=== PATIENT | female | born 1975 | race Two or more races ===

== ENCOUNTER 2022-05-13 08:23 | Day surgery (SDC) | payer OTHER ==
[~2022-05-13] VITALS: Ht 167.6 cm; Wt 96.6 kg
[~2022-05-13 08:23] MED LIST: NS 1,000 ML IV ONE
[2022-05-13] MEDS ORDERED: ATOR1TAB21 PO (09:16)
[2022-05-13] MEDS ORDERED: CELE1CAP4 PO (09:16)
[2022-05-13] MEDS ORDERED: FENO145T7 PO (09:16)
[2022-05-13] MEDS ORDERED: propofoL 500 MG/50 ML VIAL As Ordered ONE (09:57)
[2022-05-13] MEDS ORDERED: LIDOCAINE 2% 100MG/5ML SDV (FOR ANES.) As Ordered ONE (09:57)
[2022-05-13 10:36] VITALS: BP 153/75
== END 2022-05-13 10:50 | disposition home or self-care (01) ==
LOC: M OPP 08:23
PROVIDERS: ATTEND Internal Medicine Gastroenterology
DX: Z12.11 Encounter for screening for malignant neoplasm of colon (principal); K64.0 First degree hemorrhoids; Z79.02 Long term (current) use of antithrombotics/antiplatelets; Z79.899 Other long term (current) drug therapy

== ENCOUNTER → 2022-08-26 | Outpatient (CLI) | payer OTHER ==
[~2022-08-26] MED LIST changes: +ATOR1TAB21 PO; +CELE1CAP4 PO; +FENO145T7 PO; -NS 1,000 ML IV ONE
== END ==
LOC: M RAD 08:16
PROVIDERS: ATTEND Physician Assistant Medical
DX: R10.10 Upper abdominal pain, unspecified (principal)

== ENCOUNTER → 2022-11-11 | Outpatient (CLI) | payer OTHER ==
[2022-11-11 18:35] LABS: AMORPHOUS SEDIMENT SMALL (NEGATIVE); APPEARANCE, URINE CLOUDY (CLEAR); BACTERIA, URINE AUTO 1+ (NEGATIVE); BILIRUBIN, URINE AUTO NEGATIVE (NEGATIVE); BLOOD, URINE BLOOD 1+ (NEGATIVE); COLOR, URINE AMBER (YELLOW); GLUCOSE, URINE (UA) AUTO NEGATIVE (NEGATIVE); KETONE, URINE AUTO TRACE mg/dL (NEGATIVE); LEUKOCYTE ESTERASE, URINE AUTO 1+ (NEGATIVE); MUCUS, URINE SMALL (NEGATIVE); NITRITE, URINE AUTO NEGATIVE (NEGATIVE); PROTEIN, URINE AUTO 1+ mg/dL (NEGATIVE); RBC, URINE AUTO 2 /HPF (0-3); SQUAMOUS EPITHELIAL CELL UR AU 24 /HPF (0-6); WBC, URINE AUTO 5 /HPF (0-3)
== END ==
LOC: M RAD 14:53
PROVIDERS: ATTEND Physician Assistant
DX: N39.0 Urinary tract infection, site not specified (principal)